=== PATIENT | male | born 1975 | race Two or more races ===

== ENCOUNTER 2025-09-04 11:40 | Emergency (ER) | payer MEDICAID, SELFPAY ==
[2025-09-04 11:53] VITALS: BP 135/103; PULSE 99; RESP 24; TEMP 37.6; O2SAT 98
[2025-09-04 11:56] VITALS: BMI 30.9
--- NOTE | 2025-09-04 11:57 | XR_ITS ---
Examination: CT soft tissue neck, without contrast. 2-D sagittal reconstructions. 2-D coronal reconstructions. 3-D reconstructions. Date and time of exam: September 04, 2025, 1311 hours INDICATIONS: Sore throat fever 2 days CTDI: vol (mGy): 16.5 DLP: (mGycm): 497 Technique: Multiple 1.25 mm axial sections of the soft tissue neck without intravenous contrast have been obtained. 2-D sagittal and coronal reconstructions have been obtained. 3-D reconstructions have been obtained. Low dose protocols were performed. One or more of the following dose reduction techniques were used; automated exposure control, adjustment of the mA and/or KV according to patient size, use of iterative reconstruction technique. Findings: Study is significantly limited without intravenous contrast Marked right tonsillar soft tissue hypertrophy with at least 15 x 13 mm tonsillar abscess Reactive inflammatory change around the right submandibular gland Edema extends into the larynx on the right side The thyroid lobes are unremarkable Epiglottis is mildly thickened IMPRESSION: Right tonsillar abscess, marked right tonsillar soft tissue hypertrophy severely impinging upon the oropharyngeal airway
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
[2025-09-04] MEDS: DEXAMETHASONE SOD PHOS INJ 10 MG/ML VIAL IVP (12:07)
[2025-09-04] MEDS: CLINDAMYCIN 900MG IVPB 900 MG in PRE-MIXED 1 BAG 50 MG IV (12:07)
[2025-09-04 13:46] VITALS: BP 135/89; PULSE 99; RESP 19; TEMP 36.8; O2SAT 98
[2025-09-04] MEDS: RINGERS LACTATED 1000 ML 1,000 ML 999 ML IV (14:17)
[2025-09-04 15:17] VITALS: BP 146/95; PULSE 93; RESP 18; TEMP 36.8; O2SAT 97
== END 2025-09-04 15:19 | disposition home or self-care (01) ==
PROVIDERS: Emergency Provider Emergency Medicine; PCP Family Medicine
DX: J36 Peritonsillar abscess (principal)
CPT/HCPCS: 70490; 96361; 96365; 96375; 99283; J0736; J1100; J7120